=== PATIENT | female | born 1930 | race Caucasian/White ===

== ENCOUNTER 2016-09-13 21:20 | Inpatient (IN) | payer OTHER ==
[~2016-09-13] VITALS: Ht 160 cm; Wt 65.9 kg
[~2016-09-13 21:20] MED LIST: TYLENOL REGULA325 MG PO
[2016-09-13 23:20] LABS: EOSINOPHIL (%) 1.8 % (0-5); EOSINOPHIL COUNT 0.2 K/uL (0-0.3); HEMATOCRIT 38.2 % (36.0-46.0); IMMATURE GRANULOCYTE (%) 0.2 % (0.0-0.7); IMMATURE GRANULOCYTE COUNT 0.2 K/uL; LYMPHOCYTE COUNT 1.2 K/uL (1.0-2.8); MCH 29.7 PG (29.0-34.0); MCHC 33.8 G/DL (30.0-36.0); MCV 87.8 FL (83-99); MEAN PLAT.VOLUME 10.9 uM^3 (9.5-12.4); MONOCYTE (%) 8.9 % (3-12); NEUTROPHIL (%) 77.7 % (45-76); NEUTROPHIL COUNT 8.4 K/uL (1.8-6.4); PLATELET COUNT 225 K/uL (156-360); RBC DIS.WIDTH-CV 13.7 % (11.8-14.6); RBC DIS.WIDTH-SD 43.2 % (39-53); RED BLOOD COUNT 4.35 M/uL (3.80-5.20); WHITE BLOOD COUNT 10.8 K/uL (4.1-10.2)
[2016-09-14 00:01] LABS: CHLORIDE 96 mEq/L (99-109); POTASSIUM 3.4 mEq/L (3.7-5.4); SODIUM 135 mEq/L (136-147)
[2016-09-14 00:02] LABS: GLUCOSE 120 mg/dL (70-99)
[2016-09-14 00:04] LABS: ANION GAP 11 MEQ/L (2-14)
[2016-09-14 00:06] LABS: GFR ESTIMATE (CALCULATED) > 59 mL/min/
[2016-09-14 00:07] LABS: UREA NITROGEN (BUN) 17 mg/dL (9-23)
[2016-09-14 00:09] LABS: INTER. NORMALIZED RATIO 1.1; PROTHROMBIN TIME 11.3 (9.2-11.2); PTT 25.9 (25-32)
[2016-09-14] MEDS ORDERED: VITAMIN D-32000 UNI2 PO (01:10)
[2016-09-14] MEDS ORDERED: NADOLOL40 MG PO (01:10)
[2016-09-14] MEDS ORDERED: HYDROCHLOROTHIA25 MG PO (01:10)
[2016-09-14] MEDS ORDERED: LEVOTHYROXINE50 MCG PO (01:10)
[2016-09-14] MEDS ORDERED: AMLODIPINE BESYL5 MG PO (01:10)
[2016-09-14] MEDS ORDERED: PRESERVISION T1 EACH PO (01:10)
[2016-09-14] MEDS ORDERED: NEXIUM40 MG PO (01:11)
[2016-09-14 04:34] VITALS: BP 136/80
[2016-09-14 08:39] VITALS: BP 148/93
[2016-09-14 09:15] LABS: INTER. NORMALIZED RATIO 1.1
[2016-09-14 11:16] VITALS: BP 140/72
[2016-09-14 16:22] VITALS: BP 133/73
[2016-09-14 16:47] LABS: POINT-OF-CARE METER ID UU14149397
[2016-09-14 19:46] VITALS: BP 142/66
[2016-09-14 20:18] LABS: INTER. NORMALIZED RATIO 1.2; PROTHROMBIN TIME 11.9 (9.2-11.2)
[2016-09-14 23:49] VITALS: BP 121/57
[2016-09-15 04:07] VITALS: BP 131/82
[2016-09-15 07:19] LABS: HEMATOCRIT 33.1 % (36.0-46.0); MCH 29.6 PG (29.0-34.0); MCHC 32.9 G/DL (30.0-36.0); MCV 89.9 FL (83-99); MEAN PLAT.VOLUME 11.6 uM^3 (9.5-12.4); PLATELET COUNT 165 K/uL (156-360); RBC DIS.WIDTH-CV 13.8 % (11.8-14.6); RBC DIS.WIDTH-SD 45.7 % (39-53); RED BLOOD COUNT 3.68 M/uL (3.80-5.20); WHITE BLOOD COUNT 12.3 K/uL (4.1-10.2)
[2016-09-15 07:36] LABS: ALKALINE PHOSPHATASE 46 IU/L (3-129); ANION GAP 9 MEQ/L (2-14); CHLORIDE 95 MEQ/L (99-109); GFR ESTIMATE (CALCULATED) > 59 mL/min/; GLUCOSE 107 mg/dL (70-99); POTASSIUM 2.7 MEQ/L (3.7-5.4); SAMPLE HEMOLYSIS CHECK 0; SAMPLE ICTERIC CHECK 0; SAMPLE LIPEMIA CHECK 0; SODIUM 134 MEQ/L (136-147); TOTAL BILIRUBIN 0.8 MG/DL (0.0-1.0); UREA NITROGEN (BUN) 10 mg/dL (9-23)
[2016-09-15 07:49] LABS: TROP-I INTERPRETATION NEGATIVE; TROPONIN-I 0.02 ng/mL (0.0-0.30)
[2016-09-15 07:50] VITALS: BP 123/68
[2016-09-15 08:24] LABS: MAGNESIUM 1.3 mg/dl (1.3-2.7)
[2016-09-15 12:15] VITALS: BP 126/68
[2016-09-15 16:17] LABS: INTER. NORMALIZED RATIO 1.1; PROTHROMBIN TIME 11.5 (9.2-11.2)
[2016-09-15 17:20] VITALS: BP 128/71
[2016-09-15 19:57] VITALS: BP 132/60
[2016-09-16 00:15] VITALS: BP 138/68
[2016-09-16 04:34] VITALS: BP 140/81
[2016-09-16 05:11] LABS: HEMATOCRIT 30.9 % (36.0-46.0); MCH 29.3 PG (29.0-34.0); MCHC 32.7 G/DL (30.0-36.0); MCV 89.6 FL (83-99); MEAN PLAT.VOLUME 11.6 uM^3 (9.5-12.4); PLATELET COUNT 150 K/uL (156-360); RBC DIS.WIDTH-SD 46.1 % (39-53); RED BLOOD COUNT 3.45 M/uL (3.80-5.20)
[2016-09-16 05:30] LABS: ANION GAP 9 MEQ/L (2-14); CHLORIDE 92 MEQ/L (99-109); GFR ESTIMATE (CALCULATED) > 59 mL/min/; GLUCOSE 93 mg/dL (70-99); POTASSIUM 2.6 MEQ/L (3.7-5.4); SAMPLE HEMOLYSIS CHECK 0; SAMPLE ICTERIC CHECK 0; SAMPLE LIPEMIA CHECK 0; SODIUM 133 MEQ/L (136-147); UREA NITROGEN (BUN) 9 mg/dL (9-23)
[2016-09-16 08:15] LABS: MAGNESIUM 1.7 mg/dl (1.3-2.7)
[2016-09-16 08:22] VITALS: BP 135/73
[2016-09-16 12:38] VITALS: BP 132/63
[2016-09-16 16:05] LABS: INTER. NORMALIZED RATIO 1.4
[2016-09-16 16:09] VITALS: BP 129/67
[2016-09-16 23:35] VITALS: BP 116/61
[2016-09-17 06:00] LABS: HEMATOCRIT 30.1 % (36.0-46.0); MCH 29.7 PG (29.0-34.0); MCHC 32.9 G/DL (30.0-36.0); MCV 90.4 FL (83-99); MEAN PLAT.VOLUME 11.4 uM^3 (9.5-12.4); PLATELET COUNT 162 K/uL (156-360); RBC DIS.WIDTH-CV 13.9 % (11.8-14.6); RBC DIS.WIDTH-SD 45.8 % (39-53); RED BLOOD COUNT 3.33 M/uL (3.80-5.20); WHITE BLOOD COUNT 11.9 K/uL (4.1-10.2)
[2016-09-17 06:26] LABS: ANION GAP 6 MEQ/L (2-14); CHLORIDE 92 MEQ/L (99-109); GFR ESTIMATE (CALCULATED) > 59 mL/min/; GLUCOSE 105 mg/dL (70-99); POTASSIUM 3.2 MEQ/L (3.7-5.4); SAMPLE HEMOLYSIS CHECK 0; SAMPLE ICTERIC CHECK 0; SAMPLE LIPEMIA CHECK 0; SODIUM 133 MEQ/L (136-147); UREA NITROGEN (BUN) 11 mg/dL (9-23)
[2016-09-17 08:11] VITALS: BP 135/79
[2016-09-17 08:20] LABS: MAGNESIUM 1.6 mg/dl (1.3-2.7)
[2016-09-17 16:04] VITALS: BP 131/69
[2016-09-17 17:06] LABS: INTER. NORMALIZED RATIO 1.2; PROTHROMBIN TIME 12.3 (9.2-11.2)
[2016-09-17 23:56] VITALS: BP 133/68
[2016-09-18 05:32] LABS: HEMATOCRIT 30.3 % (36.0-46.0); MCHC 32.3 G/DL (30.0-36.0); MCV 89.6 FL (83-99); MEAN PLAT.VOLUME 11.2 uM^3 (9.5-12.4); PLATELET COUNT 210 K/uL (156-360); RBC DIS.WIDTH-CV 13.9 % (11.8-14.6); RBC DIS.WIDTH-SD 45.5 % (39-53); RED BLOOD COUNT 3.38 M/uL (3.80-5.20); WHITE BLOOD COUNT 11.7 K/uL (4.1-10.2)
[2016-09-18 06:21] LABS: ANION GAP 10 MEQ/L (2-14); CHLORIDE 96 MEQ/L (99-109); GFR ESTIMATE (CALCULATED) > 59 mL/min/; GLUCOSE 106 mg/dL (70-99); POTASSIUM 3.8 MEQ/L (3.7-5.4); SAMPLE HEMOLYSIS CHECK 0; SAMPLE ICTERIC CHECK 0; SAMPLE LIPEMIA CHECK 0; SODIUM 134 MEQ/L (136-147); UREA NITROGEN (BUN) 11 mg/dL (9-23)
[2016-09-18 07:50] VITALS: BP 124/74
[2016-09-18] MEDS ORDERED: XARELTO15 MG PO (13:19)
[2016-09-18] MEDS ORDERED: OXYCODONE HCL5 MG PO (13:19)
[2016-09-18 16:21] LABS: INTER. NORMALIZED RATIO 1.2
[2016-09-18 16:28] VITALS: BP 141/77
== END 2016-09-18 16:50 | DRG 481 ==
LOC: EDBD 21:20 → EME 21:20 → 3EAST 09-14 01:16 → EDOF 09-14 01:16 → 3EAST 09-14 03:16
PROVIDERS: Emergency Medicine; Internal Medicine; Internal Medicine Cardiovascular Disease; Orthopaedic Surgery; Physician Assistant
PROC: 0QS706Z Reposition Left Upper Femur with Intramedullary Internal Fixation Device, Open Approach (ICD-10-PCS; principal; 2016-09-14)
DX: S72.002A Fracture of unspecified part of neck of left femur, initial encounter for closed fracture (principal); S52.572A Other intraarticular fracture of lower end of left radius, initial encounter for closed fracture; I10 Essential (primary) hypertension; E87.6 Hypokalemia; E03.9 Hypothyroidism, unspecified; I48.0 Paroxysmal atrial fibrillation; K21.9 Gastro-esophageal reflux disease without esophagitis; W18.09XA Striking against other object with subsequent fall, initial encounter; Z91.81 History of falling; Y92.480 Sidewalk as the place of occurrence of the external cause
CPT/HCPCS: 73110; 73200; 73501; 73502; 76000; 80048; 80053; 82948; 83735; 84484; 85014; 85018; 85025; 85027; 85610; 85730; 86850; 86900; 86901; 93005; 94799; 99281; 99285; C1713; J0131; J0690; J1170; J2405; J3010; J3475; J3480; J7030; J7120

== ENCOUNTER 2016-11-12 20:15 | Day surgery (SDC) | payer OTHER ==
[~2016-11-12] VITALS: Ht 160 cm; Wt 62.5 kg
[~2016-11-12 20:15] MED LIST changes: +AMLODIPINE BESYL5 MG PO; +HYDROCHLOROTHIA25 MG PO; +LEVOTHYROXINE50 MCG PO; +NADOLOL40 MG PO; +NEXIUM40 MG PO; +OXYCODONE HCL5 MG PO; +PRESERVISION T1 EACH PO; +VITAMIN D-32000 UNI2 PO; +XARELTO15 MG PO
[2016-11-12 21:46] LABS: HEMATOCRIT 42.1 % (36.0-46.0); MCH 29.3 PG (29.0-34.0); MCHC 31.4 G/DL (30.0-36.0); RBC DIS.WIDTH-CV 14.8 % (11.8-14.6); RBC DIS.WIDTH-SD 51.5 % (39-53)
[2016-11-12 21:58] LABS: CHLORIDE 108 mEq/L (99-109); POTASSIUM 3.7 mEq/L (3.7-5.4); SODIUM 143 mEq/L (136-147)
[2016-11-12 21:59] LABS: GLUCOSE 129 mg/dL (70-99)
[2016-11-12 22:01] LABS: ANION GAP 10 MEQ/L (2-14)
[2016-11-12 22:03] LABS: GFR ESTIMATE (CALCULATED) > 59 mL/min/
[2016-11-12 22:04] LABS: UREA NITROGEN (BUN) 20 mg/dL (9-23)
[2016-11-12 22:23] LABS: MCV 93.6 FL (83-99); MEAN PLAT.VOLUME 11.6 uM^3 (9.5-12.4); PLATELET COUNT 282 K/uL (156-360)
[2016-11-12] MEDS ORDERED: CLARITIN,ALAVAR10 MG PO (23:25)
[2016-11-12] MEDS ORDERED: METOPROLOL TAR100 MG PO (23:25)
[2016-11-12] MEDS ORDERED: K-DUR20 MEQ PO (23:26)
[2016-11-13 05:00] VITALS: BP 146/85
[2016-11-13 06:14] LABS: INTER. NORMALIZED RATIO 1.2; PROTHROMBIN TIME 12.1 (9.2-11.2)
[2016-11-13 06:22] LABS: HEMATOCRIT 35.1 % (36.0-46.0); MCH 28.6 PG (29.0-34.0); MCHC 30.8 G/DL (30.0-36.0); MCV 92.9 FL (83-99); MEAN PLAT.VOLUME 11.6 uM^3 (9.5-12.4); PLATELET COUNT 214 K/uL (156-360); RBC DIS.WIDTH-CV 14.7 % (11.8-14.6); RBC DIS.WIDTH-SD 51.1 % (39-53); RED BLOOD COUNT 3.78 M/uL (3.80-5.20); WHITE BLOOD COUNT 7.2 K/uL (4.1-10.2)
[2016-11-13 06:41] LABS: TROP-I INTERPRETATION NEGATIVE; TROPONIN-I 0.02 ng/mL (0.0-0.30)
[2016-11-13 07:30] LABS: ALKALINE PHOSPHATASE 92 IU/L (3-129); ANION GAP 9 MEQ/L (2-14); CHLORIDE 107 MEQ/L (99-109); GFR ESTIMATE (CALCULATED) > 59 mL/min/; MAGNESIUM 1.2 mg/dl (1.3-2.7); POTASSIUM 3.5 MEQ/L (3.7-5.4); SAMPLE HEMOLYSIS CHECK 0; SAMPLE ICTERIC CHECK 0; SAMPLE LIPEMIA CHECK 0; SODIUM 143 MEQ/L (136-147); TOTAL BILIRUBIN 0.5 MG/DL (0.0-1.0); UREA NITROGEN (BUN) 16 mg/dL (9-23)
[2016-11-13 07:39] LABS: GLUCOSE 95 mg/dL (70-99)
[2016-11-13 09:15] VITALS: BP 148/79
[2016-11-13 13:31] LABS: TROP-I INTERPRETATION NEGATIVE; TROPONIN-I 0.01 ng/mL (0.0-0.30)
== END 2016-11-13 13:58 | disposition home or self-care (01) ==
LOC: EME 20:15 → SDC 11-13 01:21 → EME 11-13 01:21 → 2SOUTH 11-13 04:09 → 5WEST 11-13 04:09 → 2SOUTH 11-13 04:09 → 5WEST 11-13 04:45
PROVIDERS: Emergency Medicine; Hospitalist
PROC: 0DJ08ZZ Inspection of Upper Intestinal Tract, Via Natural or Artificial Opening Endoscopic (ICD-10-PCS; principal; 2016-11-13)
DX: R13.10 Dysphagia, unspecified (principal); T18.128A Food in esophagus causing other injury, initial encounter; K22.2 Esophageal obstruction; K44.9 Diaphragmatic hernia without obstruction or gangrene; K31.7 Polyp of stomach and duodenum; I48.2 Chronic atrial fibrillation; I10 Essential (primary) hypertension; K21.9 Gastro-esophageal reflux disease without esophagitis; E03.9 Hypothyroidism, unspecified; R01.1 Cardiac murmur, unspecified; Z88.0 Allergy status to penicillin
CPT/HCPCS: 80048; 80053; 83735; 84443; 84484; 85027; 85610; 93005; 99281; 99284; G0378; J2405; J7030

== ENCOUNTER 2016-12-31 20:50 | Observation (INO) | payer OTHER ==
[~2016-12-31] VITALS: Ht 160 cm; Wt 62.0 kg
[~2016-12-31 20:50] MED LIST changes: +CLARITIN,ALAVAR10 MG PO; +K-DUR20 MEQ PO; +METOPROLOL TAR100 MG PO
[2016-12-31 21:40] LABS: EOSINOPHIL (%) 0.8 % (0-5); EOSINOPHIL COUNT 0.1 K/uL (0-0.3); HEMATOCRIT 40.7 % (36.0-46.0); IMMATURE GRANULOCYTE (%) 0.4 % (0.0-0.7); INSTRUMENT ABS NEUTROPHIL CT 5.7 K/uL; LYMPHOCYTE COUNT 1.1 K/uL (1.0-2.8); MCH 27.6 PG (29.0-34.0); MCV 89.1 FL (83-99); MEAN PLAT.VOLUME 11.7 uM^3 (9.5-12.4); MONOCYTE (%) 18.9 % (3-12); MONOCYTE COUNT 1.6 K/uL (0-0.8); NEUTROPHIL COUNT 5.7 K/uL (1.8-6.4); PLATELET COUNT 260 K/uL (156-360); RBC DIS.WIDTH-CV 14.6 % (11.8-14.6); RBC DIS.WIDTH-SD 47.3 % (39-53); RED BLOOD COUNT 4.57 M/uL (3.80-5.20); WHITE BLOOD COUNT 8.5 K/uL (4.1-10.2)
[2016-12-31 21:52] LABS: CHLORIDE 105 mEq/L (99-109); POTASSIUM 3.1 mEq/L (3.7-5.4); SODIUM 143 mEq/L (136-147)
[2016-12-31 21:54] LABS: GLUCOSE 117 mg/dL (70-99)
[2016-12-31 21:55] LABS: ANION GAP 11 MEQ/L (2-14)
[2016-12-31 21:57] LABS: ALKALINE PHOSPHATASE 83 IU/L (3-129)
[2016-12-31 21:58] LABS: GFR ESTIMATE (CALCULATED) > 59 mL/min/
[2016-12-31 21:59] LABS: UREA NITROGEN (BUN) 19 mg/dL (9-23)
[2016-12-31 22:03] LABS: TROP-I INTERPRETATION NEGATIVE; TROPONIN-I < 0.01 ng/mL (0.0-0.30)
[2016-12-31 23:37] LABS: ADD MIUA? YES; BILIRUBIN NEGATIVE; BLOOD SMALL; COLOR AMBER ((YELLOW)); GLUCOSE (STRIP) NEGATIVE; KETONES 20; LEUKOCYTES LARGE; NITRITE NEGATIVE; PROTEIN (STRIP) 100; SPECIFIC GRAVITY 1.021 (1.000-1.030)
[2016-12-31 23:57] LABS: BACTERIA 3+ /HPF; EPITHELIAL CELLS 2+ /HPF; MUCUS NONE SEEN /LPF; UCUL ADDED? YES; WHITE BLOOD CELLS TNTC /HPF (0-5)
[2016-12-31 23:58] LABS: CASTS NONE SEEN /LPF; CRYSTALS NONE SEEN
[2017-01-01] MEDS ORDERED: CLARITIN-D 21 TABLET PO (00:46)
[2017-01-01] MEDS ORDERED: XARELTO20 MG PO (00:47)
[2017-01-01] MEDS ORDERED: POTASSIUM CHLO10 ME3 PO (00:47)
[2017-01-01] MEDS ORDERED: HYDROCHLOROTH12.5 M3 PO (00:48)
[2017-01-01] MEDS ORDERED: ASPIRIN325 MG PO (00:48)
[2017-01-01 02:45] VITALS: BP 175/103
[2017-01-01 09:22] VITALS: BP 163/97
[2017-01-01] MEDS ORDERED: CEFTIN500 MG PO (13:01)
[2017-01-01] MEDS ORDERED: DILTIAZEM 24HR120 MG PO (13:49)
== END 2017-01-01 16:29 | disposition home health service (06) ==
LOC: EME 20:50 → EDOF 01-01 01:52 → 5WEST 01-01 02:24
PROVIDERS: Emergency Medicine
DX: N39.0 Urinary tract infection, site not specified (principal); I48.0 Paroxysmal atrial fibrillation; E87.6 Hypokalemia; J90 Pleural effusion, not elsewhere classified; E03.9 Hypothyroidism, unspecified; I10 Essential (primary) hypertension; Z79.01 Long term (current) use of anticoagulants
CPT/HCPCS: 71020; 80053; 81003; 83605; 83880; 84484; 85025; 87040; 87077; 87086; 87186; 93005; 99281; 99285; G0378; J0744; J1956; J7030

== ENCOUNTER 2017-06-22 17:12 | Inpatient (IN) | payer OTHER ==
[~2017-06-22] VITALS: Ht 157.5 cm; Wt 51.6 kg
[~2017-06-22 17:12] MED LIST changes: +ASPIRIN325 MG PO; +CEFTIN500 MG PO; +CLARITIN-D 21 TABLET PO; +DILTIAZEM 24HR120 MG PO; +HYDROCHLOROTH12.5 M3 PO; +NEXIUM20 MG PO; -NEXIUM40 MG PO; +XARELTO20 MG PO
[2017-06-22 18:02] LABS: ADD MIUA? YES; BILIRUBIN NEGATIVE; BLOOD LARGE; COLOR YELLOW ((YELLOW)); GLUCOSE (STRIP) NEGATIVE; KETONES NEGATIVE; LEUKOCYTES MODERATE; NITRITE NEGATIVE; PROTEIN (STRIP) 100; SPECIFIC GRAVITY 1.014 (1.000-1.030)
[2017-06-22 18:22] LABS: CHLORIDE 103 mEq/L (99-109); SODIUM 143 mEq/L (136-147)
[2017-06-22 18:24] LABS: GLUCOSE 145 mg/dL (70-99)
[2017-06-22 18:25] LABS: ANION GAP 11 MEQ/L (2-14)
[2017-06-22 18:26] LABS: TOTAL BILIRUBIN 0.6 mg/dL (0.0-1.0)
[2017-06-22 18:27] LABS: ALKALINE PHOSPHATASE 74 IU/L (3-129)
[2017-06-22 18:29] LABS: UREA NITROGEN (BUN) 38 mg/dL (9-23)
[2017-06-22 18:31] LABS: RED BLOOD CELLS TNTC /HPF (0-5); WHITE BLOOD CELLS TNTC /HPF (0-5)
[2017-06-22 18:32] LABS: BACTERIA 2+ /HPF; CASTS NONE SEEN /LPF; CRYSTALS NONE SEEN; EPITHELIAL CELLS RARE /HPF; MUCUS NONE SEEN /LPF; UCUL ADDED? YES
[2017-06-22 18:33] LABS: TROP-I INTERPRETATION NEGATIVE; TROPONIN-I 0.03 ng/mL (0.0-0.30)
[2017-06-22 18:35] LABS: GFR ESTIMATE (CALCULATED) 33 mL/min/
[2017-06-22 19:05] LABS: EOSINOPHIL (%) 0 % (0-5); HEMATOCRIT 39.5 % (36.0-46.0); IMMATURE GRANULOCYTE (%) 0.3 % (0.0-0.7); INSTRUMENT ABS NEUTROPHIL CT 8.5 K/uL; LYMPHOCYTE COUNT 1.3 K/uL (1.0-2.8); MCH 22.4 PG (29.0-34.0); MCHC 27.8 G/DL (30.0-36.0); MCV 80.3 FL (83-99); MEAN PLAT.VOLUME 11.8 uM^3 (9.5-12.4); MONOCYTE (%) 15.2 % (3-12); MONOCYTE COUNT 1.8 K/uL (0-0.8); NEUTROPHIL (%) 73.4 % (45-76); NEUTROPHIL COUNT 8.5 K/uL (1.8-6.4); NRBC (%) 0.4 /100 WBC (0-0); PLATELET COUNT 326 K/uL (156-360); RBC DIS.WIDTH-CV 18.6 % (11.8-14.6); RBC DIS.WIDTH-SD 53.5 % (39-53); RED BLOOD COUNT 4.92 M/uL (3.80-5.20); WHITE BLOOD COUNT 11.6 K/uL (4.1-10.2)
[2017-06-22 19:09] LABS: INTER. NORMALIZED RATIO 1.8; PROTHROMBIN TIME 20.8 SEC (10.2-12.9)
[2017-06-22 19:10] LABS: PTT 29.2 SEC (25-37)
[2017-06-22 19:31] LABS: BASE EXCESS 2.7 mEq/L (-3 to +3); BICARBONATE 33.2 mEq/L (22-26); CARBOXY HGB 3.1 % (0-5); METHEMOGLOBIN 1.3 % (0-1.5); PCO2 89 mm Hg (35-45); PO2 61 mm Hg (80-100)
[2017-06-22 19:33] LABS: COMMENTS - BLOOD GASES C+A+; DEVICE HIGH FLOW NC; O2 FLOW 15 L/MIN; SITE RB; TOTAL RESP RATE 14 resp/min; pH 7.18 (7.35-7.45)
[2017-06-22] MEDS ORDERED: LEVOTHYROXINE50 MCG PO (20:30)
[2017-06-22] MEDS ORDERED: FUROSEMIDE20 MG PO (20:32)
[2017-06-22] MEDS ORDERED: LASIX20 MG PO (20:33)
[2017-06-22 20:34] LABS: BASE EXCESS 5.6 mEq/L (-3 to +3); BICARBONATE 29.8 mEq/L (22-26); CARBOXY HGB 2.5 % (0-5); METHEMOGLOBIN 1.1 % (0-1.5)
[2017-06-22] MEDS ORDERED: CLARITIN,ALAVAR10 MG PO (20:34)
[2017-06-22 20:35] LABS: COMMENTS - BLOOD GASES C+A+; DEVICE VENTILATOR; FI02 100 %; MECHANICAL RATE 20 resp/min; MODE A/C; PCO2 41 mm Hg (35-45); PEEP 5 CM/H20; PO2 220 mm Hg (80-100); SITE RB; TIDAL VOLUME 450 ML; TOTAL RESP RATE 20 resp/min; pH 7.47 (7.35-7.45)
[2017-06-22] MEDS ORDERED: CARTIA XT120 MG PO (20:35)
[2017-06-22 22:30] VITALS: BP 125/87
[2017-06-22 22:45] VITALS: BP 117/73
[2017-06-22 22:49] VITALS: BP 125/87
[2017-06-22 23:00] VITALS: BP 124/70
[2017-06-22 23:38] LABS: METH RESISTANT S AUREUS PCR NEGATIVE (NEGATIVE)
[2017-06-22 23:47] LABS: PROBE CHECK PASS; SPECIMEN PROCESSING CONTROL PASS
[2017-06-23] VITALS (23 sets, daily range): BP systolic 80–119; BP diastolic 41–76
[2017-06-23 05:31] LABS: INTER. NORMALIZED RATIO 1.9; PROTHROMBIN TIME 21.9 SEC (10.2-12.9)
[2017-06-23 05:56] LABS: ANION GAP 11 MEQ/L (2-14); CHLORIDE 108 MEQ/L (99-109); GFR ESTIMATE (CALCULATED) 41 mL/min/; POTASSIUM 4.7 MEQ/L (3.7-5.4); SAMPLE HEMOLYSIS CHECK 0; SAMPLE ICTERIC CHECK 0; SAMPLE LIPEMIA CHECK 0; SODIUM 147 MEQ/L (136-147); UREA NITROGEN (BUN) 36 mg/dL (9-23)
[2017-06-23 06:10] LABS: GLUCOSE 68 mg/dL (70-99)
[2017-06-23 06:24] LABS: HEMATOCRIT 32.6 % (36.0-46.0); HEMATOLOGY COMMENT 1 SN; MCH 22.2 PG (29.0-34.0); MCHC 29.4 G/DL (30.0-36.0); MCV 75.5 FL (83-99); NRBC (%) 0.4 /100 WBC (0-0); PLAT.SUFFICIENCY ADEQUATE; PLATELET COUNT UNABLE TO REPORT K/uL (156-360); RBC DIS.WIDTH-CV 18.5 % (11.8-14.6); RBC DIS.WIDTH-SD 50.4 % (39-53); RED BLOOD COUNT 4.32 M/uL (3.80-5.20)
[2017-06-23 06:48] LABS: POINT-OF-CARE METER ID UU14208751
[2017-06-23 12:25] LABS: TYPE OF FLUID PLEURAL
[2017-06-23 12:45] LABS: BODY FLUID RBC'S 28000 /MM^3 (0-100); BODY FLUID WBC'S 291 /MM^3 (0-500)
[2017-06-23 13:13] LABS: BODY FLUID EOSINOPHILS 0 % (0-25); MONONUCLEAR WBC'S 53 %; POLYNUCLEAR WBC'S 47 % (0-25)
[2017-06-23 14:17] LABS: BODY FLUID LDH 58 IU/L; BODY FLUID PROTEIN < 3.0 G/DL
[2017-06-24] VITALS (26 sets, daily range): BP systolic 82–122; BP diastolic 44–86
[2017-06-24 00:46] LABS: POINT-OF-CARE METER ID UU14208751
[2017-06-24 05:06] LABS: HEMATOCRIT 29.2 % (36.0-46.0); MCH 22.1 PG (29.0-34.0); MCHC 30.1 G/DL (30.0-36.0); MCV 73.4 FL (83-99); MEAN PLAT.VOLUME 12.3 uM^3 (9.5-12.4); NRBC (%) 0.2 /100 WBC (0-0); PLATELET COUNT 211 K/uL (156-360); RBC DIS.WIDTH-CV 18.4 % (11.8-14.6); RBC DIS.WIDTH-SD 48.4 % (39-53); RED BLOOD COUNT 3.98 M/uL (3.80-5.20); WHITE BLOOD COUNT 11.8 K/uL (4.1-10.2)
[2017-06-24 05:12] LABS: CHLORIDE 113 mEq/L (99-109); SODIUM 143 mEq/L (136-147)
[2017-06-24 05:13] LABS: GLUCOSE 81 mg/dL (70-99)
[2017-06-24 05:15] LABS: ANION GAP 5 MEQ/L (2-14)
[2017-06-24 05:17] LABS: GFR ESTIMATE (CALCULATED) > 59 mL/min/; POTASSIUM 3.3 mEq/L (3.7-5.4)
[2017-06-24 05:18] LABS: UREA NITROGEN (BUN) 27 mg/dL (9-23)
[2017-06-24 11:03] LABS: MAGNESIUM 1.4 mg/dL (1.3-2.7)
[2017-06-24 12:07] LABS: POINT-OF-CARE METER ID UU14208751
[2017-06-24 13:03] LABS: POINT-OF-CARE METER ID UU14208751
[2017-06-24 16:38] LABS: MCV 75.8 FL (83-99)
[2017-06-25] VITALS (26 sets, daily range): BP systolic 91–124; BP diastolic 51–86
[2017-06-25 00:52] LABS: MCV 74.4 FL (83-99)
[2017-06-25 08:26] LABS: EOSINOPHIL (%) 5.4 % (0-5); EOSINOPHIL COUNT 0.4 K/uL (0-0.3); HEMATOCRIT 30.8 % (36.0-46.0); IMMATURE GRANULOCYTE (%) 0.5 % (0.0-0.7); INSTRUMENT ABS NEUTROPHIL CT 5.1 K/uL; LYMPHOCYTE COUNT 1.2 K/uL (1.0-2.8); MCH 21.6 PG (29.0-34.0); MCHC 28.9 G/DL (30.0-36.0); MCV 74.8 FL (83-99); MEAN PLAT.VOLUME 11.6 uM^3 (9.5-12.4); MONOCYTE COUNT 1.2 K/uL (0-0.8); NEUTROPHIL (%) 63.6 % (45-76); NEUTROPHIL COUNT 5.1 K/uL (1.8-6.4); PLATELET COUNT 193 K/uL (156-360); RBC DIS.WIDTH-CV 18.7 % (11.8-14.6); RBC DIS.WIDTH-SD 50.9 % (39-53); RED BLOOD COUNT 4.12 M/uL (3.80-5.20); WHITE BLOOD COUNT 7.9 K/uL (4.1-10.2)
[2017-06-25 08:49] LABS: ALKALINE PHOSPHATASE 43 IU/L (3-129); ANION GAP 8 MEQ/L (2-14); CHLORIDE 115 MEQ/L (99-109); GFR ESTIMATE (CALCULATED) > 59 mL/min/; GLUCOSE 76 mg/dL (70-99); MAGNESIUM 1.3 mg/dl (1.3-2.7); POTASSIUM 3.4 MEQ/L (3.7-5.4); SAMPLE HEMOLYSIS CHECK 0; SAMPLE ICTERIC CHECK 0; SAMPLE LIPEMIA CHECK 0; SODIUM 145 MEQ/L (136-147); TOTAL BILIRUBIN 0.4 MG/DL (0.0-1.0); UREA NITROGEN (BUN) 18 mg/dL (9-23)
[2017-06-25 09:32] LABS: POINT-OF-CARE METER ID UU14314083
[2017-06-25 11:13] LABS: INTER. NORMALIZED RATIO 1.2; PROTHROMBIN TIME 13.3 SEC (10.2-12.9)
[2017-06-25 11:16] LABS: PTT 30.5 SEC (25-37)
[2017-06-25 18:20] LABS: MCV 75.5 FL (83-99)
[2017-06-26] VITALS (18 sets, daily range): BP systolic 94–148; BP diastolic 59–109
[2017-06-26 05:16] LABS: BASE EXCESS -1.8 mEq/L (-3 to +3); CARBOXY HGB 1.8 % (0-5); METHEMOGLOBIN 1.5 % (0-1.5); PCO2 39 mm Hg (35-45); pH 7.38 (7.35-7.45)
[2017-06-26 05:17] LABS: BICARBONATE 23.1 mEq/L (22-26); COMMENTS - BLOOD GASES C+; DEVICE VENT; FI02 40 %; MECHANICAL RATE 12 resp/min; MODE AC; PEEP 5 CM/H20; PO2 93 mm Hg (80-100); SITE LR; TIDAL VOLUME 450 ML; TOTAL RESP RATE 12 resp/min
[2017-06-26 06:03] LABS: EOSINOPHIL (%) 5.9 % (0-5); EOSINOPHIL COUNT 0.5 K/uL (0-0.3); HEMATOCRIT 31.9 % (36.0-46.0); IMMATURE GRANULOCYTE (%) 0.3 % (0.0-0.7); INSTRUMENT ABS NEUTROPHIL CT 5.7 K/uL; LYMPHOCYTE COUNT 1.3 K/uL (1.0-2.8); MCH 22.4 PG (29.0-34.0); MCHC 29.8 G/DL (30.0-36.0); MCV 75.1 FL (83-99); MEAN PLAT.VOLUME 11.6 uM^3 (9.5-12.4); MONOCYTE (%) 13.5 % (3-12); MONOCYTE COUNT 1.2 K/uL (0-0.8); NEUTROPHIL (%) 64.9 % (45-76); NEUTROPHIL COUNT 5.7 K/uL (1.8-6.4); PLATELET COUNT 181 K/uL (156-360); RBC DIS.WIDTH-CV 19.1 % (11.8-14.6); RBC DIS.WIDTH-SD 51.3 % (39-53); RED BLOOD COUNT 4.25 M/uL (3.80-5.20); WHITE BLOOD COUNT 8.7 K/uL (4.1-10.2)
[2017-06-26 06:34] LABS: ANION GAP 9 MEQ/L (2-14); CHLORIDE 112 MEQ/L (99-109); GFR ESTIMATE (CALCULATED) > 59 mL/min/; GLUCOSE 84 mg/dL (70-99); POTASSIUM 3.4 MEQ/L (3.7-5.4); SAMPLE HEMOLYSIS CHECK 0; SAMPLE ICTERIC CHECK 0; SAMPLE LIPEMIA CHECK 0; SODIUM 144 MEQ/L (136-147); UREA NITROGEN (BUN) 17 mg/dL (9-23)
[2017-06-27] VITALS (18 sets, daily range): BP systolic 84–126; BP diastolic 45–76
[2017-06-27 01:18] LABS: BASE EXCESS -6.2 mEq/L (-3 to +3); BICARBONATE 21.7 mEq/L (22-26); CARBOXY HGB 2.4 % (0-5); COMMENTS - BLOOD GASES C+A+; DEVICE HHFNC; FI02 100 %; METHEMOGLOBIN 1.7 % (0-1.5); O2 FLOW 70 L/MIN; PCO2 53 mm Hg (35-45); PO2 50 mm Hg (80-100); SITE RR
[2017-06-27 01:19] LABS: pH 7.22 (7.35-7.45)
[2017-06-27 02:41] LABS: BASE EXCESS -4.4 mEq/L (-3 to +3); BICARBONATE 21.7 mEq/L (22-26); CARBOXY HGB 1.3 % (0-5); COMMENTS - BLOOD GASES C+A+; DEVICE VENTILATOR; FI02 100 %; MECHANICAL RATE 16 resp/min; METHEMOGLOBIN 1.6 % (0-1.5); MODE A/C; PCO2 43 mm Hg (35-45); PEEP 10 CM/H20; PO2 118 mm Hg (80-100); SITE A LINE; TIDAL VOLUME 450 ML; TOTAL RESP RATE 16 resp/min; pH 7.31 (7.35-7.45)
[2017-06-27 02:49] LABS: EOSINOPHIL (%) 1.1 % (0-5); EOSINOPHIL COUNT 0.1 K/uL (0-0.3); HEMATOCRIT 34.6 % (36.0-46.0); IMMATURE GRANULOCYTE (%) 0.5 % (0.0-0.7); IMMATURE GRANULOCYTE COUNT 0.1 K/uL; LYMPHOCYTE COUNT 0.5 K/uL (1.0-2.8); MCH 21.7 PG (29.0-34.0); MCHC 28.6 G/DL (30.0-36.0); MCV 75.9 FL (83-99); MEAN PLAT.VOLUME 11.2 uM^3 (9.5-12.4); MONOCYTE (%) 10.9 % (3-12); MONOCYTE COUNT 1.4 K/uL (0-0.8); NEUTROPHIL (%) 83.2 % (45-76); PLATELET COUNT 200 K/uL (156-360); RBC DIS.WIDTH-CV 19.4 % (11.8-14.6); RBC DIS.WIDTH-SD 52.2 % (39-53); RED BLOOD COUNT 4.56 M/uL (3.80-5.20); WHITE BLOOD COUNT 13.2 K/uL (4.1-10.2)
[2017-06-27 02:57] LABS: CHLORIDE 113 mEq/L (99-109); POTASSIUM 4.5 mEq/L (3.7-5.4); SODIUM 143 mEq/L (136-147)
[2017-06-27 03:01] LABS: ANION GAP 10 MEQ/L (2-14)
[2017-06-27 03:03] LABS: GFR ESTIMATE (CALCULATED) > 59 mL/min/
[2017-06-27 03:04] LABS: UREA NITROGEN (BUN) 15 mg/dL (9-23)
[2017-06-27 03:13] LABS: GLUCOSE 134 mg/dL (70-99); MAGNESIUM 1.8 mg/dL (1.3-2.7)
[2017-06-27 05:02] LABS: BASE EXCESS -1.3 mEq/L (-3 to +3); BICARBONATE 21.6 mEq/L (22-26); CARBOXY HGB 1.3 % (0-5); COMMENTS - BLOOD GASES C+; DEVICE VENT; FI02 90 %; MECHANICAL RATE 16 resp/min; METHEMOGLOBIN 1.6 % (0-1.5); MODE AC; PCO2 29 mm Hg (35-45); PEEP 10 CM/H20; PO2 230 mm Hg (80-100); SITE A-LINE; TIDAL VOLUME 450 ML; TOTAL RESP RATE 16 resp/min; pH 7.48 (7.35-7.45)
[2017-06-27 05:18] LABS: BODY FLUID PH 8.1 (())
[2017-06-27 23:37] LABS: BODY FLUID LDH 170 IU/L; BODY FLUID PROTEIN < 3 G/DL
[2017-06-28] VITALS (8 sets, daily range): BP systolic 98–121; BP diastolic 59–77
[2017-06-28 05:05] LABS: CHLORIDE 112 mEq/L (99-109); POTASSIUM 3.7 mEq/L (3.7-5.4); SODIUM 140 mEq/L (136-147)
[2017-06-28 05:06] LABS: MAGNESIUM 1.8 mg/dL (1.3-2.7)
[2017-06-28 05:08] LABS: GLUCOSE 112 mg/dL (70-99)
[2017-06-28 05:09] LABS: ANION GAP 8 MEQ/L (2-14)
[2017-06-28 05:11] LABS: ALKALINE PHOSPHATASE 54 IU/L (3-129); TOTAL BILIRUBIN 0.4 mg/dL (0.0-1.0)
[2017-06-28 05:12] LABS: GFR ESTIMATE (CALCULATED) > 59 mL/min/
[2017-06-28 05:13] LABS: UREA NITROGEN (BUN) 15 mg/dL (9-23)
[2017-06-28 05:13] LABS: BASE EXCESS -2.2 mEq/L (-3 to +3); BICARBONATE 22.3 mEq/L (22-26); METHEMOGLOBIN 1.7 % (0-1.5); PCO2 36 mm Hg (35-45); PO2 87 mm Hg (80-100); SITE ALINE
[2017-06-28 05:14] LABS: DEVICE 840; FI02 30 %; MECHANICAL RATE 12 resp/min; MODE AC; PEEP 10 CM/H20; TIDAL VOLUME 450 ML; TOTAL RESP RATE 12 resp/min
[2017-06-28 05:53] LABS: HEMATOCRIT 30.7 % (36.0-46.0); MCH 21.8 PG (29.0-34.0); MCV 72.7 FL (83-99); MEAN PLAT.VOLUME 11.5 uM^3 (9.5-12.4); PLATELET COUNT 196 K/uL (156-360); RBC DIS.WIDTH-CV 18.8 % (11.8-14.6); RBC DIS.WIDTH-SD 48.6 % (39-53); RED BLOOD COUNT 4.22 M/uL (3.80-5.20); WHITE BLOOD COUNT 9.7 K/uL (4.1-10.2)
[2017-06-29] VITALS: BP 117/73
[2017-06-29 04:00] VITALS: BP 96/55
[2017-06-29 05:03] LABS: EOSINOPHIL (%) 4.9 % (0-5); EOSINOPHIL COUNT 0.5 K/uL (0-0.3); HEMATOCRIT 27.9 % (36.0-46.0); IMMATURE GRANULOCYTE (%) 0.4 % (0.0-0.7); INSTRUMENT ABS NEUTROPHIL CT 6.5 K/uL; LYMPHOCYTE COUNT 1.2 K/uL (1.0-2.8); MCHC 30.1 G/DL (30.0-36.0); MEAN PLAT.VOLUME 11.6 uM^3 (9.5-12.4); MONOCYTE (%) 18.2 % (3-12); MONOCYTE COUNT 1.9 K/uL (0-0.8); NEUTROPHIL (%) 64.1 % (45-76); NEUTROPHIL COUNT 6.5 K/uL (1.8-6.4); PLATELET COUNT 160 K/uL (156-360); RBC DIS.WIDTH-CV 18.8 % (11.8-14.6); RED BLOOD COUNT 3.82 M/uL (3.80-5.20); WHITE BLOOD COUNT 10.2 K/uL (4.1-10.2)
[2017-06-29 05:20] LABS: CHLORIDE 114 mEq/L (99-109); MAGNESIUM 1.7 mg/dL (1.3-2.7); POTASSIUM 3.4 mEq/L (3.7-5.4); SODIUM 142 mEq/L (136-147)
[2017-06-29 05:22] LABS: GLUCOSE 113 mg/dL (70-99)
[2017-06-29 05:23] LABS: ANION GAP 5 MEQ/L (2-14)
[2017-06-29 05:26] LABS: GFR ESTIMATE (CALCULATED) > 59 mL/min/; UREA NITROGEN (BUN) 13 mg/dL (9-23)
[2017-06-29 08:00] VITALS: BP 104/56
[2017-06-29 16:00] VITALS: BP 104/59
[2017-06-29 18:00] VITALS: BP 104/59
[2017-06-30] VITALS (8 sets, daily range): BP systolic 103–119; BP diastolic 56–75
[2017-06-30 05:36] LABS: BASE EXCESS -0.9 mEq/L (-3 to +3); BICARBONATE 24.8 mEq/L (22-26); CARBOXY HGB 2.5 % (0-5); METHEMOGLOBIN 1.6 % (0-1.5); PO2 75 mm Hg (80-100); pH 7.35 (7.35-7.45)
[2017-06-30 05:37] LABS: COMMENTS - BLOOD GASES C+; CONTINUOUS POS AIRWAY PRESSURE 5 cm H2O; DEVICE 980; FI02 30 %; MODE SPONT; PCO2 45 mm Hg (35-45); PRES. SUPPORT 10 CM/H2O; SITE A-LINE; TOTAL RESP RATE 33 resp/min
[2017-06-30 06:11] LABS: EOSINOPHIL (%) 6.2 % (0-5); EOSINOPHIL COUNT 0.7 K/uL (0-0.3); HEMATOCRIT 28.4 % (36.0-46.0); IMMATURE GRANULOCYTE (%) 0.8 % (0.0-0.7); IMMATURE GRANULOCYTE COUNT 0.1 K/uL; INSTRUMENT ABS NEUTROPHIL CT 6.8 K/uL; LYMPHOCYTE COUNT 1.5 K/uL (1.0-2.8); MCH 22.2 PG (29.0-34.0); MCHC 29.6 G/DL (30.0-36.0); MCV 75.1 FL (83-99); MEAN PLAT.VOLUME 11.8 uM^3 (9.5-12.4); MONOCYTE (%) 19.6 % (3-12); MONOCYTE COUNT 2.2 K/uL (0-0.8); NEUTROPHIL (%) 60.1 % (45-76); NEUTROPHIL COUNT 6.8 K/uL (1.8-6.4); PLATELET COUNT 161 K/uL (156-360); RBC DIS.WIDTH-CV 19.4 % (11.8-14.6); RED BLOOD COUNT 3.78 M/uL (3.80-5.20); WHITE BLOOD COUNT 11.3 K/uL (4.1-10.2)
[2017-06-30 06:48] LABS: ANION GAP 6 MEQ/L (2-14); CHLORIDE 114 MEQ/L (99-109); GFR ESTIMATE (CALCULATED) > 59 mL/min/; GLUCOSE 107 mg/dL (70-99); MAGNESIUM 2.1 mg/dl (1.3-2.7); POTASSIUM 4.1 MEQ/L (3.7-5.4); SAMPLE HEMOLYSIS CHECK 0; SAMPLE ICTERIC CHECK 0; SAMPLE LIPEMIA CHECK 0; SODIUM 144 MEQ/L (136-147); UREA NITROGEN (BUN) 16 mg/dL (9-23)
[2017-07-01] VITALS (14 sets, daily range): BP systolic 94–129; BP diastolic 48–74
[2017-07-01 05:12] LABS: BASE EXCESS 5.8 mEq/L (-3 to +3); BICARBONATE 30.6 mEq/L (22-26); COMMENTS - BLOOD GASES C+; DEVICE VENT; FI02 30 %; MECHANICAL RATE 12 resp/min; MODE AC; PCO2 44 mm Hg (35-45); PEEP 5 CM/H20; PO2 104 mm Hg (80-100); SITE ALINE; TIDAL VOLUME 450 ML; TOTAL RESP RATE 12 resp/min; pH 7.45 (7.35-7.45)
[2017-07-01 05:13] LABS: EOSINOPHIL (%) 5.4 % (0-5); EOSINOPHIL COUNT 0.7 K/uL (0-0.3); HEMATOCRIT 27.8 % (36.0-46.0); IMMATURE GRANULOCYTE (%) 0.7 % (0.0-0.7); IMMATURE GRANULOCYTE COUNT 0.1 K/uL; INSTRUMENT ABS NEUTROPHIL CT 7.9 K/uL; LYMPHOCYTE COUNT 1.3 K/uL (1.0-2.8); MCH 22.1 PG (29.0-34.0); MCHC 29.9 G/DL (30.0-36.0); MCV 73.9 FL (83-99); MEAN PLAT.VOLUME 11.5 uM^3 (9.5-12.4); MONOCYTE (%) 17.5 % (3-12); MONOCYTE COUNT 2.1 K/uL (0-0.8); NEUTROPHIL (%) 65.5 % (45-76); NEUTROPHIL COUNT 7.9 K/uL (1.8-6.4); PLATELET COUNT 171 K/uL (156-360); RBC DIS.WIDTH-CV 19.4 % (11.8-14.6); RBC DIS.WIDTH-SD 49.1 % (39-53); RED BLOOD COUNT 3.76 M/uL (3.80-5.20)
[2017-07-01 05:23] LABS: CHLORIDE 108 mEq/L (99-109); POTASSIUM 3.6 mEq/L (3.7-5.4); SODIUM 140 mEq/L (136-147)
[2017-07-01 05:24] LABS: MAGNESIUM 1.7 mg/dL (1.3-2.7)
[2017-07-01 05:25] LABS: GLUCOSE 125 mg/dL (70-99)
[2017-07-01 05:27] LABS: ANION GAP 5 MEQ/L (2-14)
[2017-07-01 05:29] LABS: GFR ESTIMATE (CALCULATED) > 59 mL/min/
[2017-07-01 05:30] LABS: UREA NITROGEN (BUN) 19 mg/dL (9-23)
[2017-07-02 06:08] LABS: MCH 21.9 PG (29.0-34.0); MCHC 29.7 G/DL (30.0-36.0); PLATELET COUNT 195 K/uL (156-360); RBC DIS.WIDTH-CV 20.3 % (11.8-14.6); RBC DIS.WIDTH-SD 49.7 % (39-53); RED BLOOD COUNT 3.92 M/uL (3.80-5.20); WHITE BLOOD COUNT 11.6 K/uL (4.1-10.2)
[2017-07-02 06:18] LABS: ALKALINE PHOSPHATASE 63 IU/L (3-129); ANION GAP 5 MEQ/L (2-14); CHLORIDE 106 MEQ/L (99-109); GFR ESTIMATE (CALCULATED) > 59 mL/min/; GLUCOSE 112 mg/dL (70-99); POTASSIUM 3.9 MEQ/L (3.7-5.4); SAMPLE HEMOLYSIS CHECK 0; SAMPLE ICTERIC CHECK 0; SAMPLE LIPEMIA CHECK 0; SODIUM 141 MEQ/L (136-147); TOTAL BILIRUBIN 0.4 MG/DL (0.0-1.0); UREA NITROGEN (BUN) 20 mg/dL (9-23)
[2017-07-02 08:00] VITALS: BP 95/51
[2017-07-02 13:00] VITALS: BP 95/51
[2017-07-02 16:00] VITALS: BP 100/66
[2017-07-03] VITALS: BP 108/62
[2017-07-03 05:54] LABS: HEMATOCRIT 29.2 % (36.0-46.0); MCH 22.1 PG (29.0-34.0); MCHC 30.1 G/DL (30.0-36.0); MCV 73.2 FL (83-99); RBC DIS.WIDTH-CV 20.3 % (11.8-14.6); RBC DIS.WIDTH-SD 46.9 % (39-53); RED BLOOD COUNT 3.99 M/uL (3.80-5.20); WHITE BLOOD COUNT 12.5 K/uL (4.1-10.2)
[2017-07-03 05:55] LABS: PLAT.SUFFICIENCY ADEQUATE; PLATELET COUNT 213 K/uL (156-360)
[2017-07-03 06:13] LABS: ANION GAP 9 MEQ/L (2-14); CHLORIDE 100 MEQ/L (99-109); GFR ESTIMATE (CALCULATED) > 59 mL/min/; GLUCOSE 95 mg/dL (70-99); POTASSIUM 3.8 MEQ/L (3.7-5.4); SAMPLE HEMOLYSIS CHECK 0; SAMPLE ICTERIC CHECK 0; SAMPLE LIPEMIA CHECK 0; SODIUM 142 MEQ/L (136-147); UREA NITROGEN (BUN) 26 mg/dL (9-23)
[2017-07-03 06:14] LABS: MAGNESIUM 1.7 mg/dl (1.3-2.7)
[2017-07-03 08:00] VITALS: BP 100/59
[2017-07-03 13:00] VITALS: BP 100/59
[2017-07-03 16:00] VITALS: BP 103/64
[2017-07-04 04:00] VITALS: BP 100/60
[2017-07-04 08:00] VITALS: BP 101/53
[2017-07-04 10:00] VITALS: BP 91/58
[2017-07-04 12:00] VITALS: BP 87/52
[2017-07-04 20:18] VITALS: BP 97/51
[2017-07-05 00:29] VITALS: BP 111/56
[2017-07-05 06:21] LABS: HEMATOCRIT 29.6 % (36.0-46.0); MCH 22.5 PG (29.0-34.0); MCHC 29.4 G/DL (30.0-36.0); MCV 76.7 FL (83-99); RBC DIS.WIDTH-CV 21.2 % (11.8-14.6); RBC DIS.WIDTH-SD 50.7 % (39-53); RED BLOOD COUNT 3.86 M/uL (3.80-5.20)
[2017-07-05 06:31] LABS: MEAN PLAT.VOLUME 11.4 uM^3 (9.5-12.4); PLATELET COUNT 225 K/uL (156-360)
[2017-07-05 07:28] VITALS: BP 109/56
[2017-07-05 21:38] VITALS: BP 123/59
[2017-07-06 00:11] VITALS: BP 116/63
[2017-07-06 06:16] LABS: HEMATOCRIT 29.4 % (36.0-46.0); MCH 22.9 PG (29.0-34.0); MCHC 29.6 G/DL (30.0-36.0); MCV 77.4 FL (83-99); MEAN PLAT.VOLUME 11.9 uM^3 (9.5-12.4); PLATELET COUNT 246 K/uL (156-360); RBC DIS.WIDTH-CV 21.9 % (11.8-14.6); RBC DIS.WIDTH-SD 55.4 % (39-53); WHITE BLOOD COUNT 10.1 K/uL (4.1-10.2)
[2017-07-06 06:47] LABS: ANION GAP ND MEQ/L (2-14); CHLORIDE 91 MEQ/L (99-109); GFR ESTIMATE (CALCULATED) > 59 mL/min/; GLUCOSE 88 mg/dL (70-99); POTASSIUM 3.3 MEQ/L (3.7-5.4); SAMPLE HEMOLYSIS CHECK 0; SAMPLE ICTERIC CHECK 0; SAMPLE LIPEMIA CHECK 0; SODIUM 141 MEQ/L (136-147); UREA NITROGEN (BUN) 17 mg/dL (9-23)
[2017-07-06 06:49] LABS: BASOPHIL COUNT 0.1 K/uL (0-0.1); EOSINOPHIL (%) 6.2 % (0-5); EOSINOPHIL COUNT 0.6 K/uL (0-0.3); IMMATURE GRANULOCYTE (%) 0.8 % (0.0-0.7); IMMATURE GRANULOCYTE COUNT 0.1 K/uL; INSTRUMENT ABS NEUTROPHIL CT 6.4 K/uL; LYMPHOCYTE COUNT 1.2 K/uL (1.0-2.8); MONOCYTE (%) 16.7 % (3-12); MONOCYTE COUNT 1.7 K/uL (0-0.8); NEUTROPHIL (%) 63.3 % (45-76); NEUTROPHIL COUNT 6.4 K/uL (1.8-6.4)
[2017-07-06 06:52] LABS: CARBON DIOXIDE (BICARBONATE) > 40.0 MEQ/L (20-31)
[2017-07-06 07:45] VITALS: BP 120/61
[2017-07-06 08:58] LABS: BASE EXCESS 23.2 mEq/L (-3 to +3); CARBOXY HGB 2.5 % (0-5); METHEMOGLOBIN 1.7 % (0-1.5); pH 7.52 (7.35-7.45)
[2017-07-06 08:59] LABS: BICARBONATE 49.8 mEq/L (22-26); COMMENTS - BLOOD GASES A+C+; DEVICE NC; O2 FLOW 2 L/MIN; PCO2 61 mm Hg (35-45); PO2 48 mm Hg (80-100); SITE RR; TOTAL RESP RATE 24 resp/min
[2017-07-06 09:04] LABS: MAGNESIUM 1.9 mg/dl (1.3-2.7)
[2017-07-06 14:48] LABS: DIGOXIN 0.7 ng/mL (0.8-2.0)
[2017-07-06 15:35] VITALS: BP 127/59
[2017-07-07] VITALS: BP 130/62
[2017-07-07 05:50] LABS: HEMATOCRIT 29.4 % (36.0-46.0); MCH 22.3 PG (29.0-34.0); MCHC 28.6 G/DL (30.0-36.0); MCV 78.2 FL (83-99); RBC DIS.WIDTH-CV 22.1 % (11.8-14.6); RBC DIS.WIDTH-SD 57.2 % (39-53); RED BLOOD COUNT 3.76 M/uL (3.80-5.20); WHITE BLOOD COUNT 9.3 K/uL (4.1-10.2)
[2017-07-07 06:38] LABS: PLAT.SUFFICIENCY ADEQUATE; PLATELET CLUMPS PRESENT - PLATELET COUNT APPEARS ADQ.; PLATELET COUNT UNABLE TO REPORT K/uL (156-360)
[2017-07-07 06:55] LABS: ANION GAP ND MEQ/L (2-14); CHLORIDE 96 MEQ/L (99-109); GFR ESTIMATE (CALCULATED) > 59 mL/min/; GLUCOSE 83 mg/dL (70-99); POTASSIUM 3.6 MEQ/L (3.7-5.4); SAMPLE HEMOLYSIS CHECK 0; SAMPLE ICTERIC CHECK 0; SAMPLE LIPEMIA CHECK 0; SODIUM 145 MEQ/L (136-147); UREA NITROGEN (BUN) 16 mg/dL (9-23)
[2017-07-07 06:56] LABS: CARBON DIOXIDE (BICARBONATE) > 40.0 MEQ/L (20-31)
[2017-07-07 07:35] VITALS: BP 115/57
[2017-07-07 15:25] VITALS: BP 127/62
[2017-07-07 21:45] VITALS: BP 135/76
[2017-07-08 05:57] LABS: HEMATOCRIT 30.4 % (36.0-46.0); MCH 22.7 PG (29.0-34.0); MCHC 28.6 G/DL (30.0-36.0); MCV 79.2 FL (83-99); RBC DIS.WIDTH-CV 22.7 % (11.8-14.6); RBC DIS.WIDTH-SD 61.6 % (39-53); RED BLOOD COUNT 3.84 M/uL (3.80-5.20)
[2017-07-08 06:37] LABS: PLAT.SUFFICIENCY INCREASED; PLATELET CLUMPS PRESENT - PLATELET COUNT APPEARS INCREASED; PLATELET COUNT UNABLE TO REPORT K/uL (156-360)
[2017-07-08 06:45] VITALS: BP 121/58
[2017-07-08 08:07] LABS: ALKALINE PHOSPHATASE 56 IU/L (3-129); ANION GAP 7 MEQ/L (2-14); CHLORIDE 99 MEQ/L (99-109); GFR ESTIMATE (CALCULATED) > 59 mL/min/; GLUCOSE 83 mg/dL (70-99); SAMPLE HEMOLYSIS CHECK 0; SAMPLE ICTERIC CHECK 0; SAMPLE LIPEMIA CHECK 0; SODIUM 146 MEQ/L (136-147); TOTAL BILIRUBIN 0.4 MG/DL (0.0-1.0); UREA NITROGEN (BUN) 14 mg/dL (9-23)
[2017-07-08 14:32] LABS: RESEND RESULTS RESEND RESULTS
[2017-07-08 17:13] VITALS: BP 121/59
[2017-07-08 20:05] VITALS: BP 136/60
[2017-07-08 23:16] VITALS: BP 138/65
[2017-07-09 04:32] VITALS: BP 120/63
[2017-07-09 06:14] LABS: BASOPHIL COUNT 0.1 K/uL (0-0.1); EOSINOPHIL (%) 8.5 % (0-5); EOSINOPHIL COUNT 0.7 K/uL (0-0.3); HEMATOCRIT 30.4 % (36.0-46.0); IMMATURE GRANULOCYTE (%) 0.6 % (0.0-0.7); IMMATURE GRANULOCYTE COUNT 0.1 K/uL; INSTRUMENT ABS NEUTROPHIL CT 5.1 K/uL; LYMPHOCYTE COUNT 1.6 K/uL (1.0-2.8); MCH 22.7 PG (29.0-34.0); MCHC 28.6 G/DL (30.0-36.0); MCV 79.4 FL (83-99); MEAN PLAT.VOLUME 11.7 uM^3 (9.5-12.4); MONOCYTE (%) 13.5 % (3-12); MONOCYTE COUNT 1.2 K/uL (0-0.8); NEUTROPHIL (%) 57.9 % (45-76); NEUTROPHIL COUNT 5.1 K/uL (1.8-6.4); PLATELET COUNT 373 K/uL (156-360); RBC DIS.WIDTH-CV 22.9 % (11.8-14.6); RBC DIS.WIDTH-SD 63.7 % (39-53); RED BLOOD COUNT 3.83 M/uL (3.80-5.20); WHITE BLOOD COUNT 8.7 K/uL (4.1-10.2)
[2017-07-09 06:47] LABS: ANION GAP 6 MEQ/L (2-14); CHLORIDE 99 MEQ/L (99-109); GFR ESTIMATE (CALCULATED) > 59 mL/min/; GLUCOSE 74 mg/dL (70-99); SAMPLE HEMOLYSIS CHECK 0; SAMPLE ICTERIC CHECK 0; SAMPLE LIPEMIA CHECK 0; SODIUM 145 MEQ/L (136-147); UREA NITROGEN (BUN) 13 mg/dL (9-23)
[2017-07-09 08:24] VITALS: BP 120/62
[2017-07-09 16:10] VITALS: BP 142/67
[2017-07-09] MEDS ORDERED: LISINOPRIL5 MG PO (16:25)
[2017-07-09] MEDS ORDERED: CARTIA XT120 MG PO (16:25)
[2017-07-09] MEDS ORDERED: DIGOXIN50 MCG/1 M PO (16:25)
[2017-07-09] MEDS ORDERED: METOPROLOL TAR100 MG PO (16:25)
[2017-07-09] MEDS ORDERED: ALDACTONE100 MG PO (16:25)
[2017-07-09] MEDS ORDERED: XARELTO20 MG PO (16:25)
[2017-07-09] MEDS ORDERED: ASPIRIN325 MG PO (16:25)
[2017-07-09] MEDS ORDERED: FUROSEMIDE20 MG PO (16:25)
[2017-07-09] MEDS ORDERED: DUONEB 2.5-0.5 M3 ML IH (16:25)
[2017-07-09] MEDS ORDERED: LEVOTHYROXINE50 MCG PO (16:25)
[2017-07-09] MEDS ORDERED: LASIX20 MG PO (16:25)
== END 2017-07-09 18:09 | DRG 870 ==
LOC: EME 17:12 → 4WEST 20:13 → EDOF 20:13 → ENRESERV 20:14 → 4WEST 22:16 → ENRESERV 07-04 16:39 → 5EAST 07-04 19:30
PROVIDERS: Emergency Medicine; Hospitalist; Internal Medicine; Internal Medicine Critical Care Medicine; Internal Medicine Pulmonary Disease; Physician Assistant; Specialist; Surgery
PROC: 5A1945Z Respiratory Ventilation, 24-96 Consecutive Hours (ICD-10-PCS; principal; 2017-06-22)
PROC: 05HN33Z Insertion of Infusion Device into Left Internal Jugular Vein, Percutaneous Approach (ICD-10-PCS; 2017-06-23)
PROC: 03HB33Z Insertion of Infusion Device into Right Radial Artery, Percutaneous Approach (ICD-10-PCS; 2017-06-27)
PROC: 5A1955Z Respiratory Ventilation, Greater than 96 Consecutive Hours (ICD-10-PCS; 2017-06-27)
PROC: 0W9930Z Drainage of Right Pleural Cavity with Drainage Device, Percutaneous Approach (ICD-10-PCS; 2017-06-27)
PROC: 0BH17EZ Insertion of Endotracheal Airway into Trachea, Via Natural or Artificial Opening (ICD-10-PCS; 2017-06-27)
PROC: 0W9B30Z Drainage of Left Pleural Cavity with Drainage Device, Percutaneous Approach (ICD-10-PCS; 2017-06-28)
PROC: 0W9930Z Drainage of Right Pleural Cavity with Drainage Device, Percutaneous Approach (ICD-10-PCS; 2017-06-30)
PROC: 0W993ZX Drainage of Right Pleural Cavity, Percutaneous Approach, Diagnostic (ICD-10-PCS; 2017-06-30)
DX: A41.50 Gram-negative sepsis, unspecified (principal); R65.21 Severe sepsis with septic shock; J96.01 Acute respiratory failure with hypoxia; J18.9 Pneumonia, unspecified organism; I50.21 Acute systolic (congestive) heart failure; J90 Pleural effusion, not elsewhere classified; D62 Acute posthemorrhagic anemia; E87.4 Mixed disorder of acid-base balance; Z66 Do not resuscitate; Z51.5 Encounter for palliative care; I48.92 Unspecified atrial flutter; J98.11 Atelectasis; J44.0 Chronic obstructive pulmonary disease with (acute) lower respiratory infection; J93.82 Other air leak; N17.9 Acute kidney failure, unspecified; N39.0 Urinary tract infection, site not specified; B96.1 Klebsiella pneumoniae [K. pneumoniae] as the cause of diseases classified elsewhere; K21.9 Gastro-esophageal reflux disease without esophagitis; I11.0 Hypertensive heart disease with heart failure; I27.29 Other secondary pulmonary hypertension; I27.81 Cor pulmonale (chronic); I48.2 Chronic atrial fibrillation; I34.0 Nonrheumatic mitral (valve) insufficiency; Z77.22 Contact with and (suspected) exposure to environmental tobacco smoke (acute) (chronic); E87.6 Hypokalemia; E03.9 Hypothyroidism, unspecified; D64.9 Anemia, unspecified; Z79.01 Long term (current) use of anticoagulants; Z87.440 Personal history of urinary (tract) infections
CPT/HCPCS: 31500; 36600; 70450; 71010; 71030; 71275; 76942; 80048; 80053; 80162; 80202; 81003; 82533 91; 82803; 82945; 82948; 83605; 83615 91; 83735; 83880; 83986 90; 84100; 84132 91; 84157; 84484; 85014; 85018; 85025; 85027; 85610; 85730; 87040; 87070; 87075; 87077; 87086; 87186; 87205; 87641; 88108; 88305; 89051; 90686; 92526 GN; 92610 GN; 93005; 93306; 94002; 94003; 94010; 94640; 94640 76; 94667; 94760; 94799; 97530 GO; 97530 GP; 99202; 99281; 99285; C1729; C1751; J0456; J0610; J0692; J0696; J1644; J1940; J2250; J2370; J2704; J3010; J3370; J3475; J3480; J7030; J7040; J7050; P9045; S0028

== ENCOUNTER → 2017-10-24 | Outpatient (CLI) | payer OTHER ==
[~2017-10-24] MED LIST changes: +ALDACTONE100 MG PO; +CARTIA XT120 MG PO; +DIGOXIN50 MCG/1 M PO; +DUONEB 2.5-0.5 M3 ML IH; +FEOSOL325 MG PO; +FUROSEMIDE20 MG PO; +FUROSEMIDE40 MG PO; +K-TAB10 MEQ PO; +LASIX20 MG PO; +LISINOPRIL5 MG PO; +METOPROLOL TART50 MG PO; +SINGULAIR10 MG PO
== END | disposition home or self-care (01) ==
LOC: OPR 12:00 → EDSTATUS 12:00 → OPR 12:07
PROC: 0B9N30Z Drainage of Right Pleura with Drainage Device, Percutaneous Approach (ICD-10-PCS; principal; 2017-10-24)
DX: J90 Pleural effusion, not elsewhere classified (principal)
CPT/HCPCS: 32555; C1729

== ENCOUNTER → 2017-11-22 | Outpatient (CLI) | payer OTHER | END | disposition home or self-care (01) | LOC: RAD 12:24 | PROC: 0WP930Z Removal of Drainage Device from Right Pleural Cavity, Percutaneous Approach (ICD-10-PCS; principal; 2017-11-22) | DX: J90 Pleural effusion, not elsewhere classified (principal) | CPT/HCPCS: 32552 ==